=== PATIENT | male | born 1945 | race Caucasian/White ===

== ENCOUNTER → 2016-12-03 | Outpatient (CLI) | payer MEDICARE, OTHER ==
[~2016-12-03] MED LIST: CENTRUM SILVER PO; CLARITIN10 MG PO; FLOMAX0.4 M1 PO; OSTEOBIFLEX PO; PERCOCET5/325 PO; PHENERGAN12.5 MG PO; SIMVASTATIN40 MG PO
--- NOTE | ~2016-12-03 | US6 ---
[facility] A Service of [facility] RADIOLOGY TEXT RESULTS PATIENT: SANDEEP AVALOS [facility] : 45 UNIT #: [id number] AGE: [address]: BERLIN SPICER DO SEX: M ORDER DR: [id number] [place] [id number] O MR#: [id number] Acc #: [id number] NAME: SANDEEP AVALOS : 1945 SEX: M STUDY DATE/TIME: 12/03/2016 9:03 [facility]IT[facility] ROOM: STUDY DESCRIPTION: US Abdominal Limited Attending Physician: [place] Spicer D.O. Referring Physician: [place] Spicer D.O. Ordering Physician: [place] Spicer D.O. Primary Care Physician: Maggie Tracy A.P.R.N. MEDICAL IMAGING REPORT This report is preliminary unless electronic signature is present. EXAM Right upper quadrant ultrasound. INDICATION Abnormal elevated liver function tests for 1 week. TECHNIQUE Marley-scale and color Doppler sonographic images were obtained through the right upper quadrant. FINDINGS The liver contains a simple cyst measuring 2.9 x 2.6 x 2.5 cm. No additional hepatic masses are seen. There is no intra- or extrahepatic biliary dilatation. Gallbladder is unremarkable. Main portal vein is patent with a hepatopetal flow. Right kidney is normal in appearance with no solid or cystic renal masses seen and no hydronephrosis identified. The head of business development does measure the gallbladder wall up to about 8 mm. Clinical significance is uncertain. I do not see any stones or sludge within the gallbladder to suggest any active inflammation. IMPRESSION 1. Simple hepatic cysts. 2. Suggestion of some gallbladder wall thickening although I question if this is perhaps artifactual and related to technique. Certainly, I do not see any gallbladder wall edema. There are no stones or sludge seen within the gallbladder. Gallbladder wall thickening is an indeterminate finding and can be seen in other disease entities such as hepatitis and cirrhosis. Dictated by... Diana Clark M.D. [facility] A Service of [facility] RADIOLOGY TEXT RESULTS PATIENT: SANDEEP AVALOS [facility] 45 UNIT #: [id number] AGE: [address]: BERLIN SPICER DO SEX: M ORDER DR: THIS IS AN ELECTRONICALLY VERIFIED REPORT Diana Clark M.D. at 12/03/2016 4:56 PM AFF/kit TD: 12/03/2016 14:57 JOB #: [id number] MEDICAL IMAGING REPORT Page 1 of 1
== END | disposition home or self-care (01) ==
LOC: SRAD 09:02 → SGUS 09:30
DX: R74.8 Abnormal levels of other serum enzymes (principal); K76.89 Other specified diseases of liver
CPT/HCPCS: 76705